=== PATIENT | female | born 1955 | race Caucasian/White ===

== ENCOUNTER → 2023-08-26 08:39 | Outpatient (REF) | payer MEDICARE, OTHER, SELFPAY ==
[2023-08-26 09:58] LABS: ALT (SGPT) 26 U/L (0-35); AST (SGOT) 28 U/L (14-36); Albumin 4.3 g/dl (3.5-5.0); Alkaline Phosphatase 92 U/L (38-126); Blood Urea Nitrogen 17 mg/dl (7-17); Calcium 10.6 mg/dl (8.4-10.2); Carbon Dioxide 25 mmol/L (22-30); Chloride 105 mmol/L (98-107); Glucose 107 mg/dl (70-99); Potassium 4.6 mmol/L (3.5-5.1); Sodium 140 mmol/L (135-145); Total Bilirubin 0.5 mg/dl (0.2-1.3); Total Protein 6.8 g/dl (6.3-8.2); eGFR > 60.00
[2023-08-28 09:01] LABS: Intact PTH 180.9 pg/ml (13.6-85.8)
== END ==
LOC: REG 08:39
PROVIDERS: ATTENDING PHYSICIAN Internal Medicine Endocrinology, Diabetes & Metabolism; FAMILY PHYSICIAN Internal Medicine Geriatric Medicine
DX: E21.0 Primary hyperparathyroidism (principal)
CPT/HCPCS: 36415; 80053; 83970

== ENCOUNTER → 2024-04-07 08:38 | Outpatient (REF) | payer MEDICARE, OTHER, SELFPAY ==
[2024-04-07 09:35] LABS: Urine Albumin Negative (Neg - Trace); Urine Bilirubin Negative (Negative); Urine Character Clear (Clear); Urine Color Yellow; Urine Glucose Negative (Negative); Urine Ketone Negative (Negative); Urine Leukocyte 2+ (Negative); Urine Nitrite Negative (Negative); Urine Occult Blood Negative (Negative); Urine Urobilinogen Negative (Neg - 1+)
[2024-04-07 09:48] LABS: % Basophils 0.3 % (0-2); % Eosinophils 1.6 % (0-6); % Immature Granulocytes 0.3 % (0-0.5); % Lymphocytes 19.1 % (20.5-51.1); % Monocytes 9.7 % (1.7-9.3); Absolute Eosinophils 0.2 10^3/uL (0-0.7); Absolute Lymphocytes 1.8 10^3/uL (1.2-3.4); Absolute Monocytes 0.9 10^3/uL (0.1-0.6); Absolute Neutrophils 6.4 10^3/uL (1.4-6.5); Hematocrit 41.7 % (37.0-47.0); Hemoglobin 14.1 g/dL (12.0-16.0); Mean Corp Hgb Conc. 33.8 g/dL (33.0-37.0); Mean Corpuscular Hgb 30.5 pg (27.0-31.0); Mean Corpuscular Volume 90.1 fL (81.0-99.0); Mean Platelet Volume 11.1 fL (7.4-10.4); Nucleated Red Blood Cells % 0 %; Platelet Count 213 10^3/uL (130-400); Red Blood Cell Count 4.63 10^6/uL (4.20-5.40); Red Cell Dist. Width 13.2 % (11.5-14.5); White Blood Cell Count 9.3 10^3/uL (4.8-10.8)
[2024-04-07 11:04] LABS: ALT (SGPT) 27 U/L (0-35); AST (SGOT) 26 U/L (14-36); Albumin 4.4 g/dl (3.5-5.0); Alkaline Phosphatase 92 U/L (38-126); Blood Urea Nitrogen 19 mg/dl (7-17); Calcium 10.5 mg/dl (8.4-10.2); Carbon Dioxide 25 mmol/L (22-30); Chloride 105 mmol/L (98-107); Glucose 97 mg/dl (70-99); HDL Cholesterol 52 mg/dl; LDL Cholesterol, Calculated 56 mg/dl; Potassium 4.3 mmol/L (3.5-5.1); Sodium 143 mmol/L (135-145); Total Bilirubin 0.7 mg/dl (0.2-1.3); Total Cholesterol 128 mg/dl (50-199); Total Protein 6.9 g/dl (6.3-8.2); Triglyceride 104 mg/dl (10-149); Very Low Density Lipoprotein 20 mg/dl (0-30); eGFR > 60.00
[2024-04-07 11:18] LABS: Vitamin D, 25-OH*** 25.7 ng/mL (30-80)
[2024-04-07 11:20] LABS: Free T4 1.29 ng/dl (0.78-2.19)
[2024-04-07 11:25] LABS: Urine White Cell 16-20 /HPF (0-5)
[2024-04-07 11:31] LABS: TSH 2.32 uIU/ml (0.47-4.68)
== END ==
LOC: REG 08:38
PROVIDERS: ATTENDING PHYSICIAN Internal Medicine Geriatric Medicine
DX: I10 Essential (primary) hypertension (principal); E78.2 Mixed hyperlipidemia; E03.8 Other specified hypothyroidism; E21.0 Primary hyperparathyroidism; K86.2 Cyst of pancreas; K86.9 Disease of pancreas, unspecified; J45.21 Mild intermittent asthma with (acute) exacerbation; E55.9 Vitamin D deficiency, unspecified; Z13.89 Encounter for screening for other disorder; Z12.31 Encounter for screening mammogram for malignant neoplasm of breast
CPT/HCPCS: 36415; 80053; 80061; 81003; 81015; 82306; 84439; 84443; 85025

== ENCOUNTER → 2024-04-25 12:03 | Outpatient (REF) | payer MEDICARE, OTHER, SELFPAY | LOC: RAD 12:03 | PROVIDERS: ATTENDING PHYSICIAN Internal Medicine Geriatric Medicine | DX: I10 Essential (primary) hypertension (principal); E78.2 Mixed hyperlipidemia; E03.8 Other specified hypothyroidism; E21.0 Primary hyperparathyroidism; K86.2 Cyst of pancreas; K86.9 Disease of pancreas, unspecified; J45.21 Mild intermittent asthma with (acute) exacerbation; E55.9 Vitamin D deficiency, unspecified; Z12.31 Encounter for screening mammogram for malignant neoplasm of breast; Z13.89 Encounter for screening for other disorder | CPT/HCPCS: 74177; Q9967 ==

== ENCOUNTER → 2024-05-19 07:37 | Outpatient (REF) | payer MEDICARE, OTHER, SELFPAY ==
[2024-05-19 09:16] LABS: Urine Albumin Negative (Neg - Trace); Urine Bilirubin Negative (Negative); Urine Character Clear (Clear); Urine Glucose Negative (Negative); Urine Ketone Negative (Negative); Urine Leukocyte Negative (Negative); Urine Nitrite Negative (Negative); Urine Occult Blood Negative (Negative); Urine Specific Gravity 1.015 (<1.030); Urine Urobilinogen Negative (Neg - 1+)
[2024-05-19 09:19] LABS: Urine Color Yellow
[2024-05-19 09:59] LABS: ALT (SGPT) 31 U/L (0-35); AST (SGOT) 28 U/L (14-36); Albumin 4.3 g/dl (3.5-5.0); Alkaline Phosphatase 87 U/L (38-126); Blood Urea Nitrogen 14 mg/dl (7-17); Carbon Dioxide 27 mmol/L (22-30); Chloride 103 mmol/L (98-107); Glucose 104 mg/dl (70-99); Potassium 4.2 mmol/L (3.5-5.1); Sodium 138 mmol/L (135-145); Total Bilirubin 0.3 mg/dl (0.2-1.3); Total Protein 6.8 g/dl (6.3-8.2); eGFR > 60.00
[2024-05-19 10:16] LABS: Vitamin D, 25-OH*** 27.7 ng/mL (30-80)
[2024-05-20 09:33] LABS: Intact PTH 174.4 pg/ml (13.6-85.8)
== END ==
LOC: REG 07:37
PROVIDERS: ATTENDING PHYSICIAN Internal Medicine Geriatric Medicine
DX: I10 Essential (primary) hypertension (principal); E03.8 Other specified hypothyroidism; E55.9 Vitamin D deficiency, unspecified; E21.0 Primary hyperparathyroidism
CPT/HCPCS: 36415; 80053; 81003; 82306; 83970

== ENCOUNTER → 2024-07-05 13:53 | Outpatient (REF) | payer MEDICARE, OTHER, SELFPAY | LOC: WDC 13:53 | PROVIDERS: ATTENDING PHYSICIAN Internal Medicine Geriatric Medicine | DX: I10 Essential (primary) hypertension (principal); E78.2 Mixed hyperlipidemia; E03.8 Other specified hypothyroidism; E21.0 Primary hyperparathyroidism; K86.2 Cyst of pancreas; K86.9 Disease of pancreas, unspecified; J45.21 Mild intermittent asthma with (acute) exacerbation; E55.9 Vitamin D deficiency, unspecified; Z12.31 Encounter for screening mammogram for malignant neoplasm of breast; M85.89 Other specified disorders of bone density and structure, multiple sites | CPT/HCPCS: 77063; 77067; 77080 ==

== ENCOUNTER → 2024-07-08 08:42 | Outpatient (REF) | payer MEDICARE, OTHER, SELFPAY ==
[2024-07-08 09:49] LABS: % Basophils 0.6 % (0-2); % Eosinophils 2.7 % (0-6); % Immature Granulocytes 0.3 % (0-0.5); % Lymphocytes 27.8 % (20.5-51.1); % Monocytes 10.5 % (1.7-9.3); % Neutrophils 58.1 % (42.2-75.2); Absolute Eosinophils 0.2 10^3/uL (0-0.7); Absolute Lymphocytes 1.9 10^3/uL (1.2-3.4); Absolute Monocytes 0.7 10^3/uL (0.1-0.6); Absolute Neutrophils 3.9 10^3/uL (1.4-6.5); Hematocrit 42.6 % (37.0-47.0); Hemoglobin 14.4 g/dL (12.0-16.0); Mean Corp Hgb Conc. 33.8 g/dL (33.0-37.0); Mean Corpuscular Volume 88.8 fL (81.0-99.0); Mean Platelet Volume 10.4 fL (7.4-10.4); Nucleated Red Blood Cells % 0 %; Platelet Count 225 10^3/uL (130-400); White Blood Cell Count 6.7 10^3/uL (4.8-10.8)
[2024-07-08 10:17] LABS: Blood Urea Nitrogen 18 mg/dl (7-17); Calcium 10.3 mg/dl (8.4-10.2); Carbon Dioxide 28 mmol/L (22-30); Chloride 102 mmol/L (98-107); Glucose 122 mg/dl (70-99); Potassium 4.3 mmol/L (3.5-5.1); Sodium 139 mmol/L (135-145); eGFR > 60.00
== END ==
LOC: REG 08:42
PROVIDERS: ATTENDING PHYSICIAN Orthopaedic Surgery; FAMILY PHYSICIAN Internal Medicine Geriatric Medicine
DX: Z01.818 Encounter for other preprocedural examination (principal)
CPT/HCPCS: 36415; 80048; 85025; 93005

== ENCOUNTER → 2024-08-21 10:36 | Outpatient (REF) | payer MEDICARE, OTHER, SELFPAY ==
[2024-08-21 12:38] LABS: ALT (SGPT) 27 U/L (0-35); AST (SGOT) 26 U/L (14-36); Albumin 4.2 g/dl (3.5-5.0); Alkaline Phosphatase 91 U/L (38-126); Blood Urea Nitrogen 21 mg/dl (7-17); Calcium 10.8 mg/dl (8.4-10.2); Carbon Dioxide 25 mmol/L (22-30); Chloride 106 mmol/L (98-107); Glucose 108 mg/dl (70-99); Potassium 4.7 mmol/L (3.5-5.1); Sodium 141 mmol/L (135-145); Total Bilirubin 0.5 mg/dl (0.2-1.3); Total Protein 6.8 g/dl (6.3-8.2); eGFR > 60.00
[2024-08-22 12:12] LABS: Intact PTH 141.6 pg/ml (13.6-85.8)
== END ==
LOC: REG 10:36
PROVIDERS: ATTENDING PHYSICIAN Internal Medicine Endocrinology, Diabetes & Metabolism; FAMILY PHYSICIAN Internal Medicine Geriatric Medicine
DX: E21.0 Primary hyperparathyroidism (principal)
CPT/HCPCS: 36415; 80053; 83970

== ENCOUNTER → 2025-03-27 07:55 | Outpatient (REF) | payer MEDICARE, OTHER, SELFPAY ==
[2025-03-27 08:57] LABS: Hematocrit 47.0 % (37.0-47.0); Hemoglobin 15.2 g/dL (12.0-16.0); Mean Corp Hgb Conc. 32.3 g/dL (33.0-37.0); Mean Corpuscular Volume 91.3 fL (81.0-99.0); Nucleated Red Blood Cells % 0 %; Platelet Count 230 10^3/uL (130-400); Red Cell Dist. Width 13.2 % (11.5-14.5)
[2025-03-27 09:11] LABS: Urine Character Clear (Clear)
[2025-03-27 09:23] LABS: ALT (SGPT) 29 U/L (0-35); AST (SGOT) 26 U/L (14-36); Albumin 4.6 g/dl (3.5-5.0); Alkaline Phosphatase 91 U/L (38-126); Blood Urea Nitrogen 14 mg/dl (7-17); Calcium 10.8 mg/dl (8.4-10.2); Carbon Dioxide 30 mmol/L (22-30); Chloride 102 mmol/L (98-107); Glucose 117 mg/dl (70-99); HDL Cholesterol 61 mg/dl; LDL Cholesterol, Calculated 62 mg/dl; Potassium 4.1 mmol/L (3.5-5.1); Sodium 136 mmol/L (135-145); Total Protein 7.3 g/dl (6.3-8.2); Very Low Density Lipoprotein 23 mg/dl (0-30); eGFR > 60.00
[2025-03-27 09:40] LABS: Vitamin D, 25-OH*** 33.4 ng/mL (30-80)
[2025-03-27 09:53] LABS: TSH 2.97 uIU/ml (0.47-4.68)
[2025-03-27 10:04] LABS: Urine White Cell 30-40 /HPF (0-5)
== END ==
LOC: REG 07:55
PROVIDERS: ATTENDING PHYSICIAN Internal Medicine Geriatric Medicine
DX: I10 Essential (primary) hypertension (principal); E78.2 Mixed hyperlipidemia; E03.8 Other specified hypothyroidism; E55.9 Vitamin D deficiency, unspecified
CPT/HCPCS: 80053; 80061; 81003; 81015; 82306; 84439; 84443; 85025

== ENCOUNTER → 2025-04-10 11:13 | Outpatient (REF) | payer MEDICARE, OTHER, SELFPAY ==
[2025-04-10 12:22] LABS: Urine Character Clear (Clear)
[2025-04-10 12:33] LABS: Urine Squamous Cell 0-2 /LPF (Few)
[2025-04-10 12:34] LABS: Urine Red Blood Cell 0-2 /HPF (0-2)
== END ==
LOC: REG 11:13
PROVIDERS: ATTENDING PHYSICIAN Internal Medicine Geriatric Medicine
DX: Z00.00 Encounter for general adult medical examination without abnormal findings (principal); I10 Essential (primary) hypertension; E78.2 Mixed hyperlipidemia; E03.8 Other specified hypothyroidism; E21.0 Primary hyperparathyroidism; K86.2 Cyst of pancreas; K86.9 Disease of pancreas, unspecified; J45.21 Mild intermittent asthma with (acute) exacerbation; E55.9 Vitamin D deficiency, unspecified; Z12.31 Encounter for screening mammogram for malignant neoplasm of breast
CPT/HCPCS: 81003; 81015